=== PATIENT | female | born 1960 | race Caucasian/White ===

== ENCOUNTER 2018-07-31 04:07 | Emergency (ER) | payer SELFPAY ==
[~2018-07-31] VITALS: Ht 152.4 cm; Wt 70.0 kg
[2018-07-31] MEDS ORDERED: ACETAMINOPHEN WITH CODEINE 300/30MG TABLET PO ONE (07:15)
[2018-07-31 08:32] VITALS: BP 155/39
== END 2018-07-31 08:36 | disposition home or self-care (01) ==
LOC: ER 04:07
DX: S20.219A Contusion of unspecified front wall of thorax, initial encounter (principal); S52.614A Nondisplaced fracture of right ulna styloid process, initial encounter for closed fracture; I10 Essential (primary) hypertension; E78.00 Pure hypercholesterolemia, unspecified; E11.9 Type 2 diabetes mellitus without complications; V43.62XA Car passenger injured in collision with other type car in traffic accident, initial encounter; Y93.89 Activity, other specified; Y92.488 Other paved roadways as the place of occurrence of the external cause
CPT/HCPCS: 29125; 71045; 73110; 81025; 99283